=== PATIENT | male | born 1980 | race African-American/Black ===

== ENCOUNTER 2019-02-01 09:06 | Emergency (ER) | payer SELFPAY ==
[~2019-02-01] VITALS: Ht 165.1 cm; Wt 72.7 kg
[2019-02-01 10:52] VITALS: BP 120/67
== END 2019-02-01 10:56 | disposition home or self-care (01) ==
LOC: EMS 09:08
DX: R76.12 Nonspecific reaction to cell mediated immunity measurement of gamma interferon antigen response without active tuberculosis (principal); F12.90 Cannabis use, unspecified, uncomplicated